=== PATIENT | female | born 1985 | race Caucasian/White ===

== ENCOUNTER 2017-04-09 18:23 | Inpatient (IN) | payer OTHER ==
[~2017-04-09] VITALS: Ht 162.6 cm; Wt 74.0 kg
[~2017-04-09 18:23] MED LIST: DOCU-30 PO; IBUP-1222 PO; OXYC-302 PO; POLY17PO5 PO; PREN-3 PO
[2017-04-09] MEDS ORDERED: SODIUM CHLORIDE FLUSH 10ML SYR IVF ONE (19:00)
[2017-04-09] MEDS ORDERED: SODIUM CHLORIDE 0.9% 1,000ML IVBOLUS ONE (19:00)
[2017-04-09] MEDS ORDERED: ONDANSETRON 2MG/ML, 2ML IVPush ONE (19:00)
[2017-04-09 19:31] LABS: HEMATOCRIT 41.3 % (34.6-47.8); HEMOGLOBIN 14.2 g/dL (11.7-16.4); WHITE BLOOD COUNT 9.6 x10^3/uL (3.4-10)
[2017-04-09 19:41] LABS: ASPARTATE AMINO TRANSFERASE 14 U/L (15-37); BLOOD UREA NITROGEN 10 mg/dL (7-18)
[2017-04-09] MEDS ORDERED: OMNIPAQUE 350 MG/ML, 100ML BOTTLE ONE (20:36)
[2017-04-09] MEDS ORDERED: SODIUM CHLORIDE 0.9% 1,000 ML IV ONE (21:07)
[2017-04-09] MEDS ORDERED: MORPHINE SULFATE 4 MG/ML, 1ML ONE (21:14)
[2017-04-09] MEDS ORDERED: ONDANSETRON 2MG/ML, 2ML ONE (21:14)
[2017-04-09] MEDS ORDERED: MORPHINE SULFATE 4 MG/ML, 1ML IVPush PRN (21:30)
[2017-04-09] MEDS ORDERED: ONDANSETRON 2MG/ML, 2ML IVPush PRN ×2 (21:30→22:00)
[2017-04-09] MEDS ORDERED: BISACODYL 10 MG SUPP PR PRN (22:00)
[2017-04-09] MEDS ORDERED: PROMETHAZINE 25 MG/ML, 1ML IM PRN (22:00)
[2017-04-09] MEDS ORDERED: METOCLOPRAMIDE 5 MG/ML, 2ML IVPush PRN (22:00)
[2017-04-09] MEDS ORDERED: morphine SULFATE 10 MG/ML, 1ML IVPush PRN (22:00)
[2017-04-09] MEDS: LACTATED RINGERS 1,000 ML IV SCH (23:30)
[2017-04-09] MEDS: ENOXAPARIN 40 MG/0.4 ML SQ SCH (23:30)
[2017-04-10 03:40] VITALS: BP 94/54
[2017-04-10 06:24] LABS: HEMATOCRIT 35.8 % (34.6-47.8); HEMOGLOBIN 12.1 g/dL (11.7-16.4); WHITE BLOOD COUNT 7.5 x10^3/uL (3.4-10)
[2017-04-10 06:30] VITALS: BP 97/59
[2017-04-10 06:31] LABS: BLOOD UREA NITROGEN 11 mg/dL (7-18)
[2017-04-10] MEDS ORDERED: SODIUM CHLORIDE 0.9%, 500ML IVBOLUS ONE (07:00)
[2017-04-10] MEDS: LACTATED RINGERS 1,000 ML IV SCH ×2 (07:39→17:06)
[2017-04-10 14:35] VITALS: BP 120/67
[2017-04-10] MEDS: ACETAMINOPHEN 325 MG TABLET PO PRN ×2 (15:09→22:27)
[2017-04-10] MEDS: CEFTRIAXONE PMX 1GM/50ML 50 ML IV SCH (17:04)
[2017-04-10 18:20] VITALS: BP 105/62
[2017-04-10] MEDS: ENOXAPARIN 40 MG/0.4 ML SQ SCH (22:26)
[2017-04-11 01:20] VITALS: BP 102/69
[2017-04-11] MEDS: LACTATED RINGERS 1,000 ML IV SCH ×3 (02:54→21:02)
[2017-04-11 08:20] VITALS: BP 108/67
[2017-04-11 13:11] VITALS: BP 135/77
[2017-04-11] MEDS: CEFTRIAXONE PMX 1GM/50ML 50 ML IV SCH (16:47)
[2017-04-11 18:48] VITALS: BP 112/75
[2017-04-11] MEDS: ENOXAPARIN 40 MG/0.4 ML SQ SCH (20:56)
[2017-04-12 02:07] VITALS: BP 107/72
[2017-04-12] MEDS: LACTATED RINGERS 1,000 ML IV SCH ×2 (04:16→12:14)
[2017-04-12 09:33] VITALS: BP 123/81
[2017-04-12] MEDS: CEFTRIAXONE PMX 1GM/50ML 50 ML IV SCH (13:00)
[2017-04-12 13:06] VITALS: BP 108/66
== END 2017-04-12 13:10 | disposition home or self-care (01) | DRG 389 ==
LOC: ED 19:41 → EDIP 21:07 → 4NOR 22:33
DX: K56.60 Unspecified intestinal obstruction (principal); N39.0 Urinary tract infection, site not specified; Z83.3 Family history of diabetes mellitus
CPT/HCPCS: 36415; 74020; 74177; 80048; 80053; 81001; 83690; 84703; 85025; 87086; 96361; 96374; J0696; J1650; J2405; Q9967; J7030; J7040; J7120